=== PATIENT | male | born 1990 | race Caucasian/White ===

== ENCOUNTER 2019-08-16 19:37 | Emergency (ER) | payer SELFPAY ==
--- NOTE | 2019-08-16 19:39 | XR_ITS ---
WS: [id number] Left hand, 3 views, 08/16/2019 Clinical Data: injury Comparison: Left third finger, 07/19/2016. Findings: No fractures or dislocations are seen. The soft tissues are unremarkable. The joint spaces are normal XR/XR hand LT min 3V* [id number] Impression: Negative left hand.
[2019-08-16 20:07] VITALS: BP 139/75; PULSE 90; RESP 18; TEMP 37.2; O2SAT 99; BMI 24.7
--- NOTE | 2019-08-16 20:32 | ED_ITS ---
Entered by Promise Hinojosa acting as scribe for Ileana Das Aug 16, 2019 19:37 HPI - Wound/Laceration General: Chief Complaint: Wound/Laceration Stated Complaint: smashed finger left hand Time Seen by Provider: 08/16/19 20:32 Source: patient and RN notes reviewed Mode of arrival: ambulatory Limitations: no limitations History of Present Illness: HPI narrative: 29 yo male presents to ED with complaints of an injury to his L middle finger. He stated he smashed it in a medal roller at work yesterday. Onset (ago): day(s) (1) Extremity Location: Left: hand (L middle finger) Place: work Patient tetanus UTD: Yes Context: accidental and crush injury Associated symptoms: Reports pain; Denies chills, fever(s), nausea, syncope or vomiting Treatments prior to arrival: bandage Review of Systems General: Reports: other (negative unless marked) Const: Denies: fever, chills, body aches, fatigue, malaise or diaphoresis Eyes: Denies: change in vision or blurry vision ENMT: Denies: throat pain, painful swallowing, hoarseness, ear pain, ear discharge, Change in hearing or nasal discharge Card: Denies: chest pain, palpitations, irregular heart rhythm, syncope, pre-syncope, shortness of breath on exertion or shortness of breath when lying down Resp: Denies: shortness of breath, productive cough, non-productive cough, wheezing, coughing up blood or chest congestion GI: Denies: abdominal pain, nausea, vomiting, vomiting blood, coffee grounds in vomit, diarrhea, constipation, cramping, blood in stool or black tarry stool : Denies: flank pain, difficulty urinating, painful urination, urinary frequency, urinary urgency, decreased urine ouput, urinary incontinence or blood in urine Musc: Denies: neck pain, back pain, joint pain, joint swelling, joint warmth or joint stiffness Skin/Breast: Denies: rash, skin tenderness or yellow skin Neuro: Denies: headache, numbness in extremities, weakness in extremities, changes in sensation, lack of coordination, difficulty walking, dizziness, vertigo or confusion Endo: Denies: excessive thirst, tired all the time, cold intolerance, excessive sweating, flushing or hot flashes Raul/Lymph: Denies: easy bruising, easy bleeding, petechiae or enlarged lymph nodes All/Imm: Denies: hives, throat swelling, tongue swelling, facial swelling or acute wheezing PFSH ED PFSH: Social History Smoking and tobacco status: current every day smoker Physical Exam Extremity: OTHER: Left middle finger with U-shaped laceration over finger pad. Under anesthesia in a bloodless field through full range of motion there is no evidence of foreign body or tendon involvement. Course Vital Signs: Vital signs: Vital Signs Temperature 98.3 F 08/16/19 21:18 Pulse Rate 85 08/16/19 21:18 Respiratory Rate 16 08/16/19 21:18 Blood Pressure 102/60 08/16/19 21:18 Pulse Oximetry 97 08/16/19 21:18 MDM - Wound/Laceration Imaging Data^: Xray Ortho: My impression: The patient has a wound that is over 24 hours old and not amenable to suturing. I reviewed the case with Dr. Dodge she is to see the patient once in her clinic but she think the patient should also be referred to wound care. There is a piece of the skin over the distal finger pad that looks questionable whether it will heal or slough off. He may need some wound care for a short time. There is no sign of infection at this time but I educated the patient extensively on local wound care and I will place him on Keflex. Discharge Plan Discharge Patient Disposition: Home, Self-Care Clinical Impression: Laceration Condition: Stable Prescriptions: New Keflex 500 mg capsule 500 mg PO Q6H 10 Days Qty: 40 RF: 0 Discharge Orders: Discharge Order (Routine); Ordered 08/16/19 Ordered By: Ileana Das Referrals: Miguel Stallworth MD [Family Provider] - Inga Sandra MD [Physician] - 1-3 days Cedric Frazier DO [Primary Care Provider] - WOUND CARE CLIN[facility], [Staff Physician] - 1-3 days Discharge Diet: Advance as tolerated Discharge Activity: Increase activity as tolerated Patient Instructions: Laceration (ED) Activity Restrictions/Additional Instructions: Please return to the ER immediately for any of the signs or symptoms listed on your discharge instruction sheets, worsening/changing of your symptoms, you are not getting better as quickly as expected, or for ANY other cause or concerns. Keep your wound clean and dry. Change your bandages at least every 8 hours. Return to the ER for increased swelling, red streaking up your hand, drainage from your wound, or for any other cause for concern. Be certain to follow-up with Dr. Dodge with orthopedic doctor of your choice or with the wound care clinic for reassessment. Discharge Date/Time: 08/16/19 21:19 Coding Level of Care Code ED Rehab Office Coordinator for Chg Fwd The documentation recorded by the Micaela saha Valerie R, accurately reflects the service I personally performed and the decisions made by Pippa santillan Eli N Aug 16, 2019 19:37
[2019-08-16] MEDS: cephALEXin 500 mg Capsule PO (21:09)
[2019-08-16 21:18] VITALS: BP 102/60; PULSE 85; RESP 16; TEMP 36.8; O2SAT 97
--- NOTE | 2019-08-17 11:27 | DCPLANNER ---
retail assistant manager had message to schedule a follow up appointment for patient with ortho. retail assistant manager called ortho, spoke with Kitty, gave clinic patients information. retail assistant manager was told that patients information would be printed and reviewed. Clinic will call outpatient case manager and patient with appointment information.
--- NOTE | 2019-08-18 09:29 | DCPLANNER ---
Patient has a follow up appointment scheduled for July at 11:[address] Sandra. Clinic called patient with appointment information.
--- NOTE | 2019-08-23 08:10 | DCPLANNER ---
Patient did not attend appointment scheduled for 08.18.19 with ortho.
== END 2019-08-16 21:19 | disposition home or self-care (01) ==
PROVIDERS: Emergency Provider Emergency Medicine; Family Provider Urology; PCP Orthopaedic Surgery
DX: S61.213A Laceration without foreign body of left middle finger without damage to nail, initial encounter (principal); W31.89XA Contact with other specified machinery, initial encounter; F17.200 Nicotine dependence, unspecified, uncomplicated
CPT/HCPCS: 12345; 73130; 99281; 99283

== ENCOUNTER → 2023-07-20 17:30 | Outpatient (BNVA) | payer OTHER, SELFPAY | PROVIDERS: Family Provider Urology; Visit Provider Nurse Practitioner | DX: V89.2XXA Person injured in unspecified motor-vehicle accident, traffic, initial encounter (principal); T14.90XA Injury, unspecified, initial encounter | CPT/HCPCS: 80307 ==